=== PATIENT | female | born 1990 | race Hispanic/Latino ===

== ENCOUNTER 2017-07-05 18:16 | Emergency (ER) | payer BC ==
[2017-07-05 19:25] LABS: Bilirubin Negative (Negative); Blood, Urine Moderate (Negative); Clarity CLEAR (Clear); Glucose, Urine (Dipstick) Negative (Negative); Leukocyte Negative (Negative); Nitrite Negative (Negative); Protein, Urine (Dipstick) Negative (Neg-Trace); Specific Gravity, Urine 1.008 (1.002-1.036); Urobilinogen 0.2 mg/dL (0.2-1.0); pH, Urine 6.5 (5.0-9.0)
[2017-07-05 19:27] LABS: Bacteria/HPF None Seen HPF (None Seen); Hyaline Casts/LPF 0-3 HYALINE CAST LPF (0-3 Hyaline); Pathc Cast-AUWi Flag 0.14 (0-2.49); RBC/HPF 0-3 HPF (0-3); Squamous Epithelial None Seen HPF (0-3); WBC/HPF 0-3 HPF (0-3)
[2017-07-05 20:09] LABS: #Basophils 0.1 thou/uL (0.0-0.2); #Eosinphils 0.1 thou/uL (0.0-0.7); #Lymphocytes 2.5 thou/uL (1.20-3.40); #Monocytes 0.6 thou/uL (0.11-0.59); #Neutrophils 5.4 thou/uL (1.40-6.50); %Basophils 0.7 % (0.0-1.0); %Lymphocytes 29.1 % (21.0-51.0); %Monocytes 7.2 % (0.0-10.0); Hemoglobin 14.6 g/dL (12.0-16.0); Mean Corpuscular HGB CONC 34.2 g/dL (32.0-36.0); Mean Corpuscular Hemoglobin 29.6 pg (27.0-31.0); Mean Corpuscular Volume 86.6 fl (81.0-99.0); Platelet Count 343 thou/uL (130-400); RBC Distribution Width 12.1 % (11.5-14.5); Red Blood Cell (RBC) Count 4.92 mill/uL (4.20-5.40); White Blood Cell (WBC) Count 8.7 thou/uL (4.8-10.8)
--- NOTE | 2017-07-05 20:28 | ULT ---
PELVIC ULTRASOUND 07/05/17 COMPARISON: None. HISTORY: Vaginal bleeding, per last menstrual period patient reports being five weeks . TECHNIQUE: Multiplanar jarvis scale sonographic imaging of the pelvis obtained with transabdominal and endovaginal imaging. The ovaries are assessed with color flow and spectral analysis. FINDINGS: The uterus measures 6.0 x 3.2 x 3.9 cm and demonstrates an endometrial stripe of approximately 1 cm. No intrauterine gestational sac noted. Right ovary measures 3.0 x 1.3 x 1.5 cm and left ovary measures 2.4 x 1.6 x 1.7 cm. Blood flow is see n within both ovaries. No ovarian or adnexal mass. There is a 1 cm follicle within the right ovary. IMPRESSION: No intrauterine gestational sac seen. Correlation with quantitative beta HCG required. If the patient is in fact , constellation of findings may signify normal early , spontaneous abort ion, or sonographically occult ectopic . POS: [facility]
[2017-07-05 20:32] LABS: ALT (SGPT) 16 U/L (8-55); AST (SGOT) 15 U/L (5-34); Albumin 4.2 g/dL (3.5-5.0); Alkaline Phosphatase 74 U/L (40-150); Anion Gap 13 mmol/L (10-20); BUN (Urea Nitrogen) 11 mg/dL (7.0-18.7); Bilirubin, Total 0.4 mg/dL (0.2-1.2); Calc. Creatinine Clearance 0 mL/min (70-130); Calcium 9.6 mg/dL (7.8-10.44); Carbon Dioxide 26 mmol/L (22-29); Chloride 105 mmol/L (98-107); Estimated GFR-MDRD Greater than 90; Globulin 3.2 g/dL (2.4-3.5); Glucose 103 mg/dL (70-105); Potassium 3.5 mmol/L (3.5-5.1); Protein, Total 7.4 g/dL (6.0-8.3); Sodium 140 mmol/L (136-145)
== END 2017-07-05 21:47 | disposition home or self-care (01) ==
LOC: ERS 18:16
DX: O20.0 Threatened abortion (principal); Z3A.01 Less than 8 weeks gestation of pregnancy
CPT/HCPCS: 36415; 76856; 80053; 81003; 81015; 84702; 85025; 86850; 86900; 86901

== ENCOUNTER 2018-04-15 14:23 | Outpatient (CLI) | payer BC ==
--- NOTE | 2018-04-15 16:36 | ULT ---
OB ULTRASOUND: HISTORY: anatomy. FINDINGS: A single live intrauterine gestation is seen with measurements corresponding to an estimated gestatio nal age of 19 weeks 6 days and an estimated date of delivery of 09/03/2018. The estimated weig ht measures 292 g (10 oz). measurements are as follows: BPD: 4.75 cm (20 weeks 3 days). HC: 17.28 cm (19 weeks 6 days). AC: 14.22 cm (19 weeks 5 days). FL: 2.95 cm (19 weeks 1 day). The heart rate measures 146 beats per minute. The placenta is anteriorly located without evide nce of placenta previa. Amniotic fluid appears within normal limits. A three-vessel cord, cord insertion, kidneys, bladder, stomach, four-chamber heart, lateral gilbert tricles, cerebellum, spine, lips and nose, and upper and lower extremities are visualized. No defini te anomalies are seen. IMPRESSION: Single live intrauterine of 19 weeks' 6 days' estimated gestational age and an estimated da te of delivery of 09/03/2018. POS: [facility]
== END 2018-04-15 14:24 | disposition home or self-care (01) ==
LOC: BICULT 14:23
PROVIDERS: ATTEND Family Medicine
DX: Z34.00 Encounter for supervision of normal first pregnancy, unspecified trimester (principal); Z3A.19 19 weeks gestation of pregnancy
CPT/HCPCS: 76805

== ENCOUNTER 2018-07-15 14:27 | Day surgery (SDC) | payer BC ==
[2018-07-15 15:08] VITALS: BMI 24.8
[2018-07-15 16:05] LABS: Bilirubin Negative (Negative); Blood, Urine Negative (Negative); Clarity CLEAR (Clear); Glucose, Urine (Dipstick) Negative (Negative); Leukocyte Negative (Negative); Nitrite Negative (Negative); Protein, Urine (Dipstick) Negative (Neg-Trace); Specific Gravity, Urine 1.004 (1.002-1.036); Urobilinogen 0.2 mg/dL (0.2-1.0)
[2018-07-15 16:07] LABS: Bacteria/HPF None Seen HPF (None Seen); RBC/HPF None Seen HPF (0-3); Squamous Epithelial 0-3 HPF (0-3); WBC/HPF None Seen HPF (0-3)
[2018-07-15 16:15] LABS: Pathc Cast-AUWi Flag 2.99 (0-2.49)
[2018-07-15 16:21] LABS: Hyaline Casts/LPF NONE SEEN LPF (0-3 Hyaline); Manual Microscopic Reviewed? No Path Casts Seen; Urine Culture Reflex No No
--- NOTE | 2018-07-15 16:43 | PDOC.LDHP ---
Labor and Delivery H&P Allergies/Adverse Reactions: Allergies Allergy/AdvReac Type Severity Reaction Status Date / Time shrimp Allergy Intermediate Rash Verified 07/15/18 15:03 - Plan -: PCP: Carlos A Castillo HPI: This is a 27 yo at 32 wks presenting for evaluation of vaginal bleeding. She reports seeing bright red blood with wiping yesterday, now pinkish this AM. She reports pelvic/vaginal pain which feels like cramping and comes and goes. Worse with movement. No fevers, chills, sweats. No N/V/D. Still able to eat and drink without difficulty. She affirms movement, denies cxns, denies ROM. Denies PARK, visual changes, SOB, or swelling. History: OB hx: miscarriage at 6.0 weeks PMH: neg PSH: neg Meds: PNV Soc Hx: denies smoking, alcohol, drugs Fam Hx: denies downs, congenital defects REVIEW OF SYSTEMS: Gen: no fever, chills, or sweats Neuro: no numbness/tingling, no weakness, denies headache Eyes: no visual changes ENT: no hearing changes, no sore throat, no runny nose Resp: no cough, no SOB, no wheeze Card: denies chest pain, no palpitations GI: no N/V/D, see hpi : see hpi MSK: no myalgias, no joint pain/stiffness Heme: no easy bruising/bleeding Skin: no rash, no erythema PHYSICAL EXAMINATION: General: NAD, alert and oriented x3 HEENT: PERRLA, EOMI, normal sclera, oropharynx without erythema or exudate Neck: Supple. Full ROM. Heart/Cardiovascular System: RRR, Cap refill < 3 seconds, no rub, no murmur Lungs/Respiratory System: clear to auscultation bilaterally. No increased work of breathing. Room air. Abdomen/Gastro-Intestinal System: no abdominal tenderness, normal bowel sounds, Gravid Extremities: Warm extremities. No cyanosis or edema. Neuro: No gross deficits appreciated. CN 2-12 grossly intact Psychiatry: Awake, Alert and cooperative with exam Skin: No lesions, rashes, or ulcers Musculoskeletal: Full ROM Residential Program Worker: Sterile spec shows thick fluid in posterior vault, light bleeding from cervix, SVE: closed/thick/mid-post A/P: This is a 27 yo at 32 wks presenting for evaluation of vaginal bleeding # Vaginitis - Vp3 sent - Ltd US shows BENNETT 16, CL 35mm, vertex - Will treat for vaginitis based on exam, flagyl 500mg BID 7 days - Follow up with PCP in 2-3 days # Round ligament pain - Tylenol, rest
--- NOTE | 2018-07-15 16:55 | ULT ---
EXAM: Limited OB ultrasound COMPARISON: 04/15/2018 HISTORY: Intrauterine . Evaluate position as well as cervical length and amniotic fluid index. TECHNIQUE: Multiplanar grayscale and color Doppler transabdominal sonographic images are obtained. FINDINGS: There is a single intrauterine gestation in cephalic presentation. Cardiac Doppler demonstr ates heart tones with a heart rate of 140 beats per minute. The placenta is located anteriorly without evidence of placenta previa. There is a normal amount of amniotic fluid with an am niotic fluid index of 16.2 centimeters. The cervical length based on transabdominal imaging measures 3.49 cm based on transabdominal imaging. This examination was not performed for evaluation of the anatomical structures, and biome try measurements were also not obtained. Although biometry measurements were not performed, there has been interval growth subjectively since study on 04/15/2018. IMPRESSION: 1. Single intrauterine gestation in cephalic presentation with heart tones documented. 2. Cervical length measures approximately 3.49 cm. 3. Amniotic fluid index is 16.2 centimeters.
== END 2018-07-15 16:50 | disposition home or self-care (01) ==
LOC: L&D/OP 14:27
PROVIDERS: ATTEND Family Medicine
DX: O46.93 Antepartum hemorrhage, unspecified, third trimester (principal); O23.593 Infection of other part of genital tract in pregnancy, third trimester; O99.89 Other specified diseases and conditions complicating pregnancy, childbirth and the puerperium; R10.2 Pelvic and perineal pain; Z3A.32 32 weeks gestation of pregnancy; Z91.013 Allergy to seafood
CPT/HCPCS: 51701; 76815; 81001; 87480; 87510; 87660; 99284

== ENCOUNTER 2018-09-05 02:26 | Inpatient (IN) | payer BC ==
[2018-09-05 02:59] VITALS: BMI 28.5
[2018-09-05 03:14] LABS: Amnisure Test RUPTURE DETECTED (No Rupture)
[2018-09-05 03:15] LABS: Amnisure Internal Control QC ACCEPTABLE (ACCEPTABLE)
[2018-09-05] MEDS ORDERED: Ondansetron PF 4 MG/2 ML Vial IVP PRN (03:25)
[2018-09-05] MEDS ORDERED: NS / Oxytocin 40 units/1000ml 1,000 ML IV PRN (03:25)
[2018-09-05] MEDS ORDERED: Butorphanol Tartrate 1 MG/ML VIAL SLOW IVP PRN (03:25)
[2018-09-05] MEDS ORDERED: Lidocaine 1% (PF) 30 ML VIAL SC PRN (03:25)
[2018-09-05] MEDS ORDERED: Promethazine HCl 25 MG/ML VIAL IM PRN (03:25)
[2018-09-05] MEDS ORDERED: hydrALAZINE 20 MG/ML VIAL SLOW IVP PRN ×2 (03:25→16:15)
[2018-09-05] MEDS ORDERED: Ibuprofen 800 MG TAB PO PRN (03:25)
[2018-09-05] MEDS ORDERED: HYDROcodone/Acetaminophen 5/325 mg Tablet PO PRN ×3 (03:25→16:15)
--- NOTE | 2018-09-05 03:28 | PDOC.EVN ---
Event Note - Event Note Event Note: History and Physical (Interim) Term patient with spont rupture of membranes. Direct admission to Dr Mishra, who is covering for Dr summers (Gretel). GBS neg Vitals stable Admit orders placed per courtesy
[2018-09-05 04:28] LABS: Hemoglobin 11.9 g/dL (12.0-16.0); Mean Corpuscular Hemoglobin 26.6 pg (27.0-31.0); Mean Corpuscular Volume 80.5 fL (78.0-98.0); Mean Platelet Volume 7.3 fL (7.4-10.4); Platelet Count 346 thou/uL (130-400); RBC Distribution Width 14.7 % (11.5-14.5); Red Blood Cell (RBC) Count 4.46 mill/uL (4.20-5.40); White Blood Cell (WBC) Count 13.4 thou/uL (4.8-10.8)
[2018-09-05] MEDS ORDERED: Fentanyl 4 mcg/Bup 0.1% Cadd 100 ML ONE ×2 (04:50→12:27)
[2018-09-05 05:05] LABS: Syphilis Antibody Nonreactive (Nonreactive); Syphilis Antibody Index 0.07 S/CO (<1.00 Non-Reactive)
[2018-09-05 05:06] LABS: HBSAg Index 0.25 S/CO (0-0.99); HIV (1/2) Antibody/Antigen Non-Reactive (NonReactive); HIV 1/2 INDEX 0.17 S/CO (<1.00); Hep B Surf Ag Non-Reactive S/CO (NonReactive)
[2018-09-05] MEDS ORDERED: NS w/ Oxytocin 10 units 500 ML ONE (07:25)
[2018-09-05] MEDS ORDERED: NS w/ Oxytocin 10 units 500 ML IVPB SCH (07:45)
[2018-09-05] MEDS: Lactated Ringer's 1,000 ML IV SCH ×2 (10:28→15:59)
[2018-09-05] MEDS ORDERED: Bupivacaine/Epinephrine 0.25% 30 ML VIAL ONE (11:11)
[2018-09-05] MEDS ORDERED: Misoprostol 200 MCG TAB ONE (15:01)
[2018-09-05] MEDS ORDERED: Methylergonovine 0.2 MG/ML VIAL ONE (15:01)
--- NOTE | 2018-09-05 15:23 | PDOC.OPDEL ---
OB Operative/Delivery Note Delivery Dr/Surgeon: Tad Pre-Delivery Diagnosis: active labor, non-reassuring tracing, ruptured membrane Procedure/Post Delivery Dx: operative vaginal delivery Weeks gestation: 39 Anesthesia: epidural - Findings A Sex: male - 1 min: 8 - 5 min: 9 - Additional Findings/Plan Placenta delivered: spontaneous Repaired Obstetrical Laceration: 2nd degree (3nd degree midline laceration repaired with 2.0 vicryl, posterior vaginal laceration parallel to the perineal laceration repaired with 2.0 vicryl, right labial repaired with 2.0 vicryl. All hemostatic after repair.) Compilations/Other Findings: Vacuum assisted delivery for maternal exhaustion and tachycardia. Vacuum placed at +3 station, care taken to exclude maternal tissues, suction taken to green and traction with the next contraction with excellent descent, total contractions to deliver the head were 2, max pressure was 50, total time of application was 2 minutes, no pop-offs. Effective delivery of the vertex and vacuum promptly removed, shoulders and body easily followed. Post delivery plan: routine recovery
[2018-09-05] MEDS ORDERED: NS / Oxytocin 40 units/1000ml 1,000 ML IV SCH (16:15)
[2018-09-05] MEDS ORDERED: diphenhydrAMINE 25 MG CAP PO PRN (16:15)
[2018-09-05] MEDS ORDERED: Bisacodyl 10 MG SUPP PR PRN (16:15)
[2018-09-05] MEDS ORDERED: Adacel (T-DAP) 0.5 ML SYRINGE IM ONE (16:15)
[2018-09-05] MEDS ORDERED: Milk Of Magnesia 30 ML UDCUP PO PRN (16:15)
[2018-09-05] MEDS: Ibuprofen 800 MG TAB PO SCH (17:18)
[2018-09-05] MEDS: Ferrous Sulfate 325 MG TAB PO SCH (18:42)
[2018-09-06] MEDS: Ibuprofen 800 MG TAB PO SCH ×3 (01:25→17:26)
[2018-09-06] MEDS: Docusate Calcium (SURFAK) 240 MG CAP PO SCH ×3 (01:26→21:22)
[2018-09-06] MEDS ORDERED: Benzocaine-Menthol 82.5 ML CAN TOP PRN (01:52)
[2018-09-06] MEDS ORDERED: Lanolin Ointment 7 GM TUBE TOP PRN (02:30)
[2018-09-06 06:13] LABS: Hemoglobin 9.3 g/dL (12.0-16.0)
[2018-09-06] MEDS: Ferrous Sulfate 325 MG TAB PO SCH ×2 (09:10→17:25)
--- NOTE | 2018-09-06 15:11 | PDOC.PP ---
Post Progress Note Post Day #: 1 Subjective: Doing well. Pain controlled. Sore but moving well. well. PO intake tolerated: yes Flatus: yes Ambulation: yes Vital Signs (12 hours) Temp Pulse Resp BP Pulse Ox 09/06/18 11:20 98.7 F 103 H 20 106/61 09/06/18 07:56 99.3 F 97 20 117/73 96 09/06/18 04:45 98.7 F 96 18 99/57 L Weight Weight 156 lb - Physical Examination General: NAD Cardiovascular: no m/r/g, RRR Respiratory: clear to auscultation bilaterally, non-labored breathing Abdominal: + bowel sounds, lochia, no distention, appropriately TTP Result Diagrams: 09/06/18 05:47 Additional Labs: Post Labs Blood Type O POSITIVE 09/05/18 04:11 Hep Bs Antigen Non-Reactive S/CO (NonReactive) 09/05/18 04:10 (1) Vaginal delivery Code(s): O80 - ENCOUNTER FOR FULL-TERM UNCOMPLICATED DELIVERY Status: Acute - Assessment/Plan Routine care Work on D/C tomorrow
[2018-09-07] MEDS: Ibuprofen 800 MG TAB PO SCH ×2 (01:21→02:04)
[2018-09-07 07:59] VITALS: BP 115/80; TEMP 98.7
[2018-09-07] MEDS: Ferrous Sulfate 325 MG TAB PO SCH (09:20)
[2018-09-07] MEDS: Docusate Calcium (SURFAK) 240 MG CAP PO SCH ×2 (09:20→09:22)
--- NOTE | 2018-09-07 10:25 | PDOC.PP ---
Post Progress Note Post Day #: 2 Subjective: Doing well. well. PO intake tolerated: yes Flatus: yes Ambulation: yes Vital Signs (12 hours) Temp Pulse Resp BP Pulse Ox 09/07/18 09:10 98 09/07/18 07:05 98.7 F 103 H 20 115/80 98 09/07/18 00:51 96 Weight Weight 156 lb - Physical Examination General: NAD Cardiovascular: no m/r/g, RRR Respiratory: clear to auscultation bilaterally, non-labored breathing Abdominal: + bowel sounds, lochia, no distention, appropriately TTP Psychiatric: A&Ox3 Result Diagrams: 09/06/18 05:47 Additional Labs: Post Labs Blood Type O POSITIVE 09/05/18 04:11 Hep Bs Antigen Non-Reactive S/CO (NonReactive) 09/05/18 04:10 (1) Vaginal delivery Code(s): O80 - ENCOUNTER FOR FULL-TERM UNCOMPLICATED DELIVERY Status: Acute - Assessment/Plan Routine PP care D/C home
== END 2018-09-07 12:10 | disposition home or self-care (01) | DRG 807 ==
LOC: L&D/OP 02:26 → L&D 03:29 → 3SW 18:13
PROVIDERS: ADMIT Family Medicine; ATTEND Family Medicine
PROC: 10D07Z6 Extraction of Products of Conception, Vacuum, Via Natural or Artificial Opening (ICD-10-PCS; principal; 2018-09-05)
PROC: 0KQM0ZZ Repair Perineum Muscle, Open Approach (ICD-10-PCS; 2018-09-05)
DX: O75.81 Maternal exhaustion complicating labor and delivery (principal); Z37.0 Single live birth; O76 Abnormality in fetal heart rate and rhythm complicating labor and delivery; Z3A.39 39 weeks gestation of pregnancy; O70.1 Second degree perineal laceration during delivery
CPT/HCPCS: 36415; 51702; 84112; 85014; 85018; 85027; 86780; 86850; 86900; 86901; 87340; 87389; 90715; 99285; J2001; J2210; J2590

== ENCOUNTER 2020-08-31 12:50 | Outpatient (CLI) | payer BC ==
[~2020-08-31 12:50] MED LIST: Iopamidol-370 76% 500 ML 1 ML ONE
== END 2020-08-31 12:51 | disposition home or self-care (01) ==
LOC: BICCT 12:50
PROVIDERS: ATTEND Otolaryngology Plastic Surgery within the Head & Neck
DX: K11.20 Sialoadenitis, unspecified (principal); H61.892 Other specified disorders of left external ear
CPT/HCPCS: 70491; Q9967

== ENCOUNTER 2024-01-14 15:06 | Outpatient (CLI) | payer BC | END 2024-01-14 15:07 | disposition home or self-care (01) | LOC: BICULT 15:06 | PROVIDERS: ATTEND Family Medicine | DX: N13.30 Unspecified hydronephrosis (principal) | CPT/HCPCS: 76770 ==

== ENCOUNTER 2025-01-16 11:09 | Outpatient (CLI) | payer BC ==
[2025-01-16] MEDS ORDERED: Furosemide 40 MG (4 mL) VIAL ONE (12:07)
== END 2025-01-16 11:10 | disposition home or self-care (01) ==
LOC: NM 11:09
PROVIDERS: ATTEND Urology
DX: N13.5 Crossing vessel and stricture of ureter without hydronephrosis (principal)
CPT/HCPCS: 78708; A4314; A4641; A9562; J1940